=== PATIENT | male | born 1965 | race Caucasian/White ===

== ENCOUNTER 2016-04-22 03:11 | Emergency (ER) | payer OTHER ==
[2016-04-22 03:17] VITALS: PULSE 60; RESP 14; TEMP 98.1; O2SAT 97
[2016-04-22 03:18] VITALS: BP 122/73
[2016-04-22] MEDS ORDERED: LIDOCAINE 2% VISCOUS 15 ML UDCUP PO ONE (03:53)
--- NOTE | 2016-04-22 04:30 | EDPHY ---
H & P Stated Complaint: sore throat, difficulty swallowing Time Seen by Provider: 04/22/16 03:28 HPI/ROS: HPI The patient presents with difficulty swallowing and pain in his throat. His symptoms have been present since February but seemed to be getting progressively worse. He says it sometimes feels like something is caught in his throat, however over the last 1 week he has had more pain associated with this. He has not had any drooling, difficulty eating or drinking fluids. Tonight he awoke with more pain than usual in his throat which is sharp and aching. He has no neck stiffness or difficulty moving his neck. He was seen by a primary care doctor earlier this week. He had a TSH performed which is normal. He is waiting for a thyroid ultrasound later in the month. REVIEW OF SYSTEMS Constitutional: No fever, no chills. Eyes: No discharge. ENT: + sore throat. Cardiovascular: No chest pain, no palpitations. Respiratory: No cough, no shortness of breath. Gastrointestinal: No abdominal pain, no vomiting. Genitourinary: No hematuria. Musculoskeletal: No back pain. Skin: No rashes. Neurological: No headache. PMHx: Healthy PHYSICAL General Appearance: Alert, no distress Eyes: Pupils equal and round no pallor or injection ENT, Mouth: Posterior pharynx is normal without any erythema or exudate no lymphadenopathy Respiratory: There are no retractions, lungs are clear to auscultation Cardiovascular: Regular rate and rhythm Gastrointestinal: Abdomen is soft and non-tender, no masses, bowel sounds normal Neurological: A&O, moves all extremities Skin: Warm and dry, no rashes Musculoskeletal: Neck is supple non tender Extremities: symmetrical, full range of motion Psychiatric: Patient is oriented X 3, there is no agitation Source: Patient Exam Limitations: No limitations - Personal History Current Tetanus/Diphtheria Vaccine: Unsure - Medical/Surgical History Hx Asthma: No Hx Chronic Respiratory Disease: No Hx Diabetes: No Hx Cardiac Disease: No Hx Renal Disease: No Hx Cirrhosis: No Hx Alcoholism: No Hx HIV/AIDS: No Hx Splenectomy or Spleen Trauma: No Other PMH: PSHx: r knee menicus repair, liver biopsy. PMHx: denies - Social History Smoking Status: Former smoker Constitutional: Initial Vital Signs Temperature (C) 36.7 C 04/22/16 03:13 Heart Rate 60 04/22/16 03:13 Respiratory Rate 14 01/13/17 03:13 Blood Pressure 122/73 H 04/22/16 03:13 O2 Sat (%) 97 04/22/16 03:13 O2 Delivery Mode Room Air Allergies/Adverse Reactions: No Known Allergies Allergy (Unverified 04/22/16 03:13) Home Medications: Medication Instructions Recorded NK [No Known Home Meds] 04/22/16 Medical Decision Making - Diagnostics Imaging: Two view soft tissue of neck is normal, radiology interpretation is pending. ED Course/Re-evaluation: The patient improved somewhat with viscous lidocaine by mouth. He may have some sort of esophageal pathology such is stricture or esophagitis. I have explained this to him. I doubt any airway obstruction in his case. I have given him information for GI follow-up for further evaluation. He is in agreement with this plan. Differential Diagnosis: This is a 50-year-old man with throat pain and dysphagia which has been present for the last several months but has been getting worse. On exam, his posterior pharynx is normal appearing. He has had recent normal thyroid function test. Differential diagnosis includes esophagitis, esophageal stricture, achalasia, less likely epiglottitis or airway obstruction. Less likely pharyngitis given normal throat exam. 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 You can call him for a follow-up appointment. He should return to the emergency room if your worse in any way. Referrals: Chuckie Jones [Primary Care Provider] - As per Instructions Carlyle Gongora MD [Medical Doctor] - As per Instructions
--- NOTE | 2016-04-22 08:09 | DX ---
Soft Tissue Neck, Two Views Indication: Throat pain and difficulty swallowing. Findings: Prevertebral soft tissues are within normal limits. The bones exhibit some mild arthritic c hanges. The epiglottis is normal. Impression: Normal.
== END 2016-04-22 05:04 | disposition home or self-care (01) ==
DX: R13.10 Dysphagia, unspecified (principal); J02.9 Acute pharyngitis, unspecified; Z87.891 Personal history of nicotine dependence

== ENCOUNTER → 2016-04-29 | Outpatient (CLI) | payer OTHER ==
--- NOTE | 2016-04-29 10:18 | DX ---
Esophagram History: Pain with swallowing since February. Comparison: None available. Technique: Double contrast esophagram is performed with thin and thick barium. Findings: There is a small persistent nodule in the left vallecula on the AP swallowing cine images, which persisted during two separate swallowing attempts. The piriform sinuses appear symmetric. Prima ry esophageal peristalsis is normal. Secondary esophageal peristalsis is slightly diminished. There i s minimal oblique indentation of the anterior esophagus which could be related to an aberrant origin of the right subclavian artery. The esophageal mucosal pattern appears normal. There is no hiatal her candelaria. There is moderate gastroesophageal reflux to the level of the upper thoracic esophagus. A 13-mm barium tablet passed without difficulty. 2.2 minutes of fluoroscopy were utilized. Dose= 54.1 mGy. Impression: 1. Possible polyp/mass in the left vallecula. Direct visualization is recommended. 2. Diminished secondary esophageal peristalsis. 3. Spontaneous gastroesophageal reflux to the upper thoracic esophagus. Findings discussed with Chuckie Jones today at 1012 hours.
== END ==
LOC: FIMAGING 09:00
PROVIDERS: ATTEND Family Medicine
DX: K22.4 Dyskinesia of esophagus (principal); K21.9 Gastro-esophageal reflux disease without esophagitis

== ENCOUNTER → 2016-09-21 | Outpatient (CLI) | payer OTHER | LOC: FIMAGING 08:40 | PROVIDERS: ATTEND Orthopaedic Surgery | DX: M25.562 Pain in left knee (principal); M23.222 Derangement of posterior horn of medial meniscus due to old tear or injury, left knee; M25.462 Effusion, left knee; M24.10 Other articular cartilage disorders, unspecified site ==